=== PATIENT | male | born 1960 | race Caucasian/White ===

== ENCOUNTER 2021-12-29 22:40 | Emergency (ER) | payer OTHER | END 2021-12-29 23:39 | disposition left against medical advice (07) | LOC: ERS 22:40 | DX: Z53.21 Procedure and treatment not carried out due to patient leaving prior to being seen by health care provider (principal) ==

== ENCOUNTER 2023-05-12 11:06 | Day surgery (SDC) | payer BC ==
[2023-05-09 11:14] VITALS: BMI 34.9
[2023-05-12] MEDS ORDERED: Ondansetron PF 4 MG/2 ML Vial ONE (13:20)
[2023-05-12] MEDS ORDERED: PHENYLEPHRINE-NS 100 MCG/ML 10 ML SYRINGE ONE (13:20)
[2023-05-12] MEDS ORDERED: PROPOFOL 200 MG/20 ML VIAL ONE (13:20)
== END 2023-05-12 15:20 | disposition home or self-care (01) ==
LOC: MRI 11:06
PROVIDERS: ATTEND Specialist
DX: M48.062 Spinal stenosis, lumbar region with neurogenic claudication (principal); M51.16 Intervertebral disc disorders with radiculopathy, lumbar region; M24.28 Disorder of ligament, vertebrae; I10 Essential (primary) hypertension; E11.9 Type 2 diabetes mellitus without complications; Z79.84 Long term (current) use of oral hypoglycemic drugs; Z79.899 Other long term (current) drug therapy
CPT/HCPCS: 72148; J2405; J2704